=== PATIENT | male | born 1960 | race Caucasian/White ===

== ENCOUNTER → 2016-12-11 | Outpatient (REF) | payer OTHER | LOC: M WUC 09:28 | PROVIDERS: ATTEND Physician Assistant | DX: J02.9 Acute pharyngitis, unspecified (principal) ==

== ENCOUNTER → 2020-08-03 | Outpatient (CLI) | payer SELFPAY | LOC: M LABSMTC 11:13 | PROVIDERS: ATTEND Pediatrics | DX: Z20.828 Contact with and (suspected) exposure to other viral communicable diseases (principal) ==

== ENCOUNTER 2022-12-26 06:38 | Day surgery (SDC) | payer OTHER ==
[~2022-12-26] VITALS: Ht 188 cm; Wt 122.5 kg
[~2022-12-26 06:38] MED LIST: LORA-243 PO; NS 1,000 ML IV ONE; OXYM15SP2; VITMTA PO
[2022-12-26] MEDS ORDERED: propofoL 200 MG/20 ML VIAL As Ordered ONE ×4 (07:11→08:26)
[2022-12-26] MEDS ORDERED: MIDAZOLAM INJ 2MG/2ML VIAL As Ordered ONE (07:13)
[2022-12-26 09:06] VITALS: BP 141/86
== END 2022-12-26 10:04 | disposition home or self-care (01) ==
LOC: M OPP 06:38
PROVIDERS: ATTEND Surgery
DX: D12.3 Benign neoplasm of transverse colon (principal); D12.4 Benign neoplasm of descending colon; D12.8 Benign neoplasm of rectum; K62.89 Other specified diseases of anus and rectum; D49.0 Neoplasm of unspecified behavior of digestive system; K62.5 Hemorrhage of anus and rectum; Z79.899 Other long term (current) drug therapy; F17.290 Nicotine dependence, other tobacco product, uncomplicated
CPT/HCPCS: 45380; 45381; 45385; 88305; J2250

== ENCOUNTER → 2023-01-01 | Outpatient (CLI) | payer OTHER ==
[~2023-01-01] MED LIST changes: -NS 1,000 ML IV ONE
[2023-01-01 18:45] LABS: HEMATOCRIT 40.8 % (42.0-52.0); HEMOGLOBIN 12.9 g/dl (13.5-17.5); MEAN CORPUSCULAR HEMOGLOBIN 27.8 pg (27.0-33.0); MEAN CORPUSCULAR HGB CONC 31.6 g/dl (32.0-36.5); MEAN CORPUSCULAR VOLUME 87.9 fl (80.0-96.0); PLATELET COUNT, AUTOMATED 187 10^3/uL (150-450); RED BLOOD COUNT 4.64 10^6/uL (4.30-6.10); WHITE BLOOD COUNT 6.2 10^3/uL (4.0-10.0)
[2023-01-01 19:28] LABS: ALBUMIN 4.3 G/DL (3.2-5.2); ALKALINE PHOSPHATASE 99 U/L (46-116); ALT/SGPT 69 U/L (7.0-40); AST/SGOT 62 U/L (<34); BILIRUBIN,TOTAL 0.4 MG/DL (0.3-1.2); BLOOD UREA NITROGEN 16 MG/DL (9-23); CALCIUM LEVEL 9.1 MG/DL (8.3-10.6); CARBON DIOXIDE LEVEL 25 MMOL/L (20-31); CARCINOEMBRYONIC ANTIGEN < 2.0 NG/ML (<2.5); CHLORIDE LEVEL 107 MMOL/L (98-107); CREATININE FOR GFR 1.25 MG/DL (0.70-1.30); GLOMERULAR FILTRATION RATE > 60.0 (>49); GLUCOSE, FASTING 94 MG/DL (74-106); POTASSIUM SERUM 3.9 MMOL/L (3.5-5.1); SODIUM LEVEL 140 MMOL/L (136-145); TOTAL PROTEIN 7.3 G/DL (5.7-8.2)
== END ==
LOC: M CARPUL 17:17
PROVIDERS: ATTEND Surgery
DX: C21.8 Malignant neoplasm of overlapping sites of rectum, anus and anal canal (principal); K62.89 Other specified diseases of anus and rectum

== ENCOUNTER 2023-01-04 10:07 | Day surgery (SDC) | payer OTHER ==
[~2023-01-04] VITALS: Ht 188 cm; Wt 122.9 kg
[~2023-01-04 10:07] MED LIST changes: +CelecoXIB 400 MG CAP PO ONE; +cefoTEtan DISODIUM 2 GM in D5W MINI-BAG PLUS 50 ML IV ONE; +metroNIDAZOLE 500 MG in IV 1 EA IV ONE
[2023-01-04] MEDS ORDERED: LIDOCAINE 1% SDV 30ML VIAL As Ordered ONE (11:27)
[2023-01-04] MEDS ORDERED: BUPIVACAINE HCL 0.25% 30ML VIAL As Ordered ONE (11:27)
[2023-01-04] MEDS ORDERED: LIDOCAINE W/EPINEPHRINE 1% 20ML VIAL As Ordered ONE (11:27)
[2023-01-04] MEDS ORDERED: BUPIVACAINE/EPIN 0.25% 30ML VIAL As Ordered ONE (12:22)
[2023-01-04] MEDS ORDERED: BUPIVACAINE LIPOSOME/PF 1.3% 20ML VIAL (13.3MG/ML)(EXPAREL) As Ordered ONE (12:22)
[2023-01-04] MEDS ORDERED: KETOROLAC 60MG 2ML VIAL As Ordered ONE (12:28)
[2023-01-04] MEDS ORDERED: MIDAZOLAM INJ 2MG/2ML VIAL As Ordered ONE (12:28)
[2023-01-04] MEDS ORDERED: fentaNYL 250 MCG/5 ML INJECTION As Ordered ONE (12:28)
[2023-01-04] MEDS ORDERED: LIDOCAINE 2% 100MG/5ML SDV (FOR ANES.) As Ordered ONE (12:28)
[2023-01-04] MEDS ORDERED: ONDANSETRON 4MG 2ML VIAL As Ordered ONE (12:28)
[2023-01-04] MEDS ORDERED: ACETAMINOPHEN 1000MG 100ML IV BAG As Ordered ONE (12:28)
[2023-01-04] MEDS ORDERED: propofoL 200 MG/20 ML VIAL As Ordered ONE (12:28)
[2023-01-04] MEDS ORDERED: ONDANSETRON 4MG 2ML VIAL IV PRN (13:15)
[2023-01-04] MEDS ORDERED: LR 1,000 ML IV SCH ×2 (13:15)
[2023-01-04] MEDS ORDERED: HYDROMORPHONE HCL 0.5 MG/ 0.5 ML SYRINGE IV PRN (13:15)
[2023-01-04] MEDS ORDERED: fentaNYL 100 MCG/2 ML INJECTION IV PRN (13:15)
[2023-01-04] MEDS ORDERED: oxyCODONE 5MG TAB PO PRN (13:15)
[2023-01-04 14:20] VITALS: BP 134/81
== END 2023-01-04 16:30 | disposition home or self-care (01) ==
LOC: M SDC 10:07
PROVIDERS: ATTEND Surgery
DX: C21.8 Malignant neoplasm of overlapping sites of rectum, anus and anal canal (principal); J30.1 Allergic rhinitis due to pollen; R06.83 Snoring; Z79.899 Other long term (current) drug therapy
CPT/HCPCS: 45100; 88305; C9290; J0131; J1100; J1885; J2250; J2405; J3010; J3490; S0020

== ENCOUNTER → 2023-01-16 | Outpatient (CLI) | payer OTHER ==
[~2023-01-16] MED LIST changes: -CelecoXIB 400 MG CAP PO ONE; +GASTROGRAFIN SOLUTION 30ML As Ordered ONE; +ISOVUE-370 76% 100ML VIAL As Ordered ONE; -cefoTEtan DISODIUM 2 GM in D5W MINI-BAG PLUS 50 ML IV ONE; -metroNIDAZOLE 500 MG in IV 1 EA IV ONE
== END ==
LOC: M RAD 15:28
PROVIDERS: ATTEND Surgery
DX: C21.1 Malignant neoplasm of anal canal (principal); C21.8 Malignant neoplasm of overlapping sites of rectum, anus and anal canal

== ENCOUNTER → 2023-01-23 | Outpatient (CLI) | payer OTHER ==
[~2023-01-23] MED LIST changes: +CAPE1TAB PO; +CAPE1TAB2 PO; -GASTROGRAFIN SOLUTION 30ML As Ordered ONE; -ISOVUE-370 76% 100ML VIAL As Ordered ONE
== END ==
LOC: M ONCR 12:31
PROVIDERS: ATTEND General Practice
DX: C21.8 Malignant neoplasm of overlapping sites of rectum, anus and anal canal (principal); R59.9 Enlarged lymph nodes, unspecified; F17.290 Nicotine dependence, other tobacco product, uncomplicated; J30.89 Other allergic rhinitis; Z71.2 Person consulting for explanation of examination or test findings; Z80.51 Family history of malignant neoplasm of kidney

== ENCOUNTER → 2023-01-25 | Outpatient (CLI) | payer OTHER | LOC: M PLARAD 07:45 | PROVIDERS: ATTEND Surgery | DX: C21.1 Malignant neoplasm of anal canal (principal); C21.8 Malignant neoplasm of overlapping sites of rectum, anus and anal canal ==

== ENCOUNTER 2023-02-13 13:28 | Outpatient (RCR) | payer OTHER | END 2023-02-15 | LOC: M ONCR 13:28 | PROVIDERS: ATTEND General Practice | DX: C21.8 Malignant neoplasm of overlapping sites of rectum, anus and anal canal (principal) ==

== ENCOUNTER → 2023-02-18 | Outpatient (CLI) | payer OTHER | LOC: M PLARAD 09:01 | PROVIDERS: ATTEND General Practice | DX: C21.8 Malignant neoplasm of overlapping sites of rectum, anus and anal canal (principal) | CPT/HCPCS: 78815; A9552 ==

== ENCOUNTER → 2023-03-18 | Outpatient (RCR) | payer OTHER ==
[~2023-03-18] MED LIST changes: +ONDA8TAB8 PO
== END ==
LOC: M ONCR 02-20 10:01
PROVIDERS: ATTEND General Practice
DX: C21.8 Malignant neoplasm of overlapping sites of rectum, anus and anal canal (principal)

== ENCOUNTER 2023-04-04 15:27 | Outpatient (RCR) | payer OTHER ==
[~2023-04-04 15:27] MED LIST changes: +FLOM0.4C39 PO
[2023-04-25] MEDS ORDERED: FLOM0.4C39 PO ×2 (13:53→15:33)
== END 2023-04-18 ==
LOC: M ONCR 15:27
PROVIDERS: ATTEND General Practice
DX: Z51.0 Encounter for antineoplastic radiation therapy (principal); C21.8 Malignant neoplasm of overlapping sites of rectum, anus and anal canal

== ENCOUNTER → 2023-04-15 | Outpatient (CLI) | payer OTHER | LOC: M ONCR 15:12 | PROVIDERS: ATTEND General Practice | DX: C20 Malignant neoplasm of rectum (principal); K59.00 Constipation, unspecified; L59.8 Other specified disorders of the skin and subcutaneous tissue related to radiation; Z92.21 Personal history of antineoplastic chemotherapy; Z92.3 Personal history of irradiation ==

== ENCOUNTER → 2024-08-03 | Outpatient (CLI) | payer OTHER ==
[~2024-08-03] MED LIST changes: +ISOVUE-370 76% 100ML VIAL As Ordered ONE; +ONDA-284 PO; -ONDA8TAB8 PO
== END ==
LOC: M RAD 07:36
PROVIDERS: ATTEND Specialist
DX: C20 Malignant neoplasm of rectum (principal)

== ENCOUNTER → 2025-08-04 | Outpatient (CLI) | payer MEDICARE, OTHER ==
[~2025-08-04] MED LIST changes: -FLOM0.4C39 PO; -ISOVUE-370 76% 100ML VIAL As Ordered ONE; +TAMS-18 PO
== END ==
LOC: M WUC 11:48
PROVIDERS: ATTEND Physician Assistant
DX: M25.512 Pain in left shoulder (principal)